=== PATIENT | female | born 1945 | race Caucasian/White ===

== ENCOUNTER 2018-02-26 13:50 | Observation (INO) | payer OTHER ==
[2018-02-26] MEDS ORDERED: MECLIZINE 25 MG TAB PO (16:00)
[2018-02-26] MEDS ORDERED: DOCUSATE SODIUM 100 MG CAP PO (16:00)
[2018-02-26] MEDS ORDERED: ONDANSETRON 4 MG INJ IV (16:00)
[2018-02-26] MEDS ORDERED: NACL 0.9% 3 ML SYG IV (16:00)
[2018-02-26] MEDS ORDERED: ACETAMINOPHEN 325 MG TAB PO (16:00)
[2018-02-26] MEDS ORDERED: hydrALAzine 20 MG INJ IV (17:00)
[2018-02-26] MEDS: SOD CHLORIDE 0.9% 1,000 ML IV (17:27)
[2018-02-26 18:29] LABS: TROPONIN-I < 0.012 ng/ml (0.000-0.120)
[2018-02-27] MEDS ORDERED: ENOXAPARIN 40 MG/0.4 ML SYG SC (09:00)
== END 2018-02-26 22:40 | disposition home or self-care (01) ==
LOC: TEL 13:50
PROVIDERS: Hospitalist
DX: R07.9 Chest pain, unspecified (principal); R42 Dizziness and giddiness
CPT/HCPCS: 84484; 99217; G0378